=== PATIENT | female | born 1965 | race Two or more races ===

== ENCOUNTER 2025-04-22 11:10 | Inpatient (IN) | payer OTHER ==
[~2025-04-22] VITALS: Ht 162.6 cm; Wt 86.4 kg
[2025-04-22 11:20] VITALS: RESP 30
--- NOTE | 2025-04-22 11:20 | ED.PDOC ---
SOB-HPI HPI Comments 60 y.o female with PMHx of DM and HTN, presents to the ED via EMS for a chief complaint of SOB that started 2 days ago. Patient reports being seen at the ED recently for complaint, states she was discharged unknown diagnosis but sates SOB has progressively worsened since. Per triage notes, patient was diagnosed with PNA in which she is currently treating. Patient was placed on CPAP by EMS on scene due to respiratory distress. EMS also mentions patient is a tobacco smoker and last cigarette use was this morning. Patient also complains of right sided rib pain. 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 Family History Family History: Reviewed,noncontributory to illness, No family hx of Cancer, No family hx of DM, No family hx of Heart sagrario, No family hx of HTN, No family hx ofKidney sagrario, No family hx of Liver sargario, No family hx of Lung sagrario, No family hx of Stroke Social History Smoker: Non-Smoker Alcohol: Denies ETOH Use Drugs: Denies Drug Use Lives In: Home Constitutional: denies: chills, diaphoresis, fatigue, fever, malaise, sweats, weakness, others EENTM: denies: blurred vision, double vision, ear bleeding, ear discharge, ear drainage, ear pain, ear ringing, eye pain, eye redness, hearing loss, mouth pain, mouth swelling, nasal discharge, nose bleeding, nose congestion, nose pain, photophobia, tearing, throat pain, throat swelling, voice changes, others Respiratory: reports: SOB at rest, shortness of breath, SOB with excertion; denies: cough, hemoptysis, orthopnea, stridor, wheezing, others Cardiovascular: denies: chest pain, dizzy spells, diaphoresis, Dyspnea on exertion, edema, irregular heart beat, left arm pain, lightheadedness, palpitations, PND, syncope, others Gastrointestinal: denies: abdomen distended, abdominal pain, blood streaked bowels, constipated, diarrhea, dysphagia, difficulty swallowing, hematemesis, melena, nausea, poor appetite, poor fluid intake, rectal bleeding, rectal pain, vomiting, others Genitourinary: denies: abnormal vagina bleeding, burning, dyspareunia, dysuria, flank pain, frequency, hematuria, incontinence, pain, , vagina discharge, urgency, others Neurological: denies: dizziness, fainting, headache, left sided numbness, left sided weakness, numbness, paresthesia, pre-existing deficit, right sided numbness, right sided weakness, seizure, speech problems, tingling, tremors, weakness, others Musculoskeletal: denies: back pain, gout, joint pain, joint swelling, muscle pain, muscle stiffness, neck pain, others Integumetry: denies: bruises, change in color, change in hair/nails, dryness, laceration, lesions, lumps, rash, wounds, others Allergic/Immunocompromised: denies: Difficulty Healing, Frequent Infections, Hives, Itching, others Hematologic/Lymphatic: denies: anemia, blood clots, easy bleeding, easy bruising, swollen glands, others Endocrine: denies: excessive hunger, excessive sweating, excessive thirst, excessive urination, flushing, intolerance to cold, intolerance to heat, unexplained weight gain, unexplained weight loss, others Psychiatric: denies: anxiety, bipolar disorder, depression, hopeless, panic disorder, schizophrenia, sleepless, suicidal, others All Other Systems: Reviewed and Negative Physical Exam General Appearance: Mild Distress HEENT: Normal ENT Inspection Neck: Normal Inspection Respiratory: Accessory Muscle Use, Respiratory Distress Cardiovascular: No Edema, No Murmur, No Gallop, Tachycardia Breast Exam: Deferred Gastrointestinal: NOT DONE Genitalia: Deferred Pelvic: Deferred Rectal: Deferred Extremities: No calf tenderness, Normal inspection, Normal range of motion, No pedal edema Neurologic: Alert, Normal Affect, No Sensory Deficits Cerebellar Function: Unable to Test Reflexes: NOT DONE Skin: Dry, Normal Color Lymphatic: NOT DONE Was a procedure done? Was a procedure done?: No Differential Dx Differential Diagnosis: Bronchitis, COPD, Pneumonia, URI X-Ray, Labs, Meds, VS Vital Signs Date Time Temp Pulse Resp B/P (MAP) Pulse Ox O2 Delivery O2 Flow Rate FiO2 04/22/25 12:03 24 97 Bi-Pap+ 0 30 30 04/22/25 12:00 128 04/22/25 12:00 123 23 158/87 (110) 100 04/22/25 11:23 98.6 118 35 153/90 (111) 97 98.6 04/22/25 11:20 30 Bi-Pap+ 30 30 04/22/25 11:17 98.6 114 30 162/65 99 98.6 04/22/25 11:15 115 04/22/25 11:12 114 153/90 Facial BiPAP Mask 30 Lab Test 04/22/25 12:51 04/22/25 12:11 04/22/25 11:48 Range/Units Troponin I High Sensitivity Pending < 3 L </=34 ng/L Blood Gas Specimen Type Arterial Blood Gas Sample Site Right radial Blood Gas Patient Temperature 37.0 Arterial Blood Date Drawn [id number] Arterial Blood pH 7.397 7.350-7.450 Arterial Blood Partial Pressure CO2 31.5 L 32.0-45.0 mmHg Arterial Blood Partial Pressure O2 142.7 H 83.0-108.0 mmHg Arterial Blood HCO3 18.9 L 21.0-28.0 mmol/L Arterial Blood Oxygen Saturation 99.1 H 94.0-98.0 % Arterial Blood Base Excess -4.7 L -2.0-3.0 mmol/L Arterial Blood Oxyhemoglobin 95.6 94.0-98.0 % Arterial Blood Carboxyhemoglobin 2.8 H 0.5-1.5 % Arterial Blood Methemoglobin 0.7 0.0-1.5 % Nolan Test Yes Blood Gas Total Hemoglobin 15.10 12.0-16.0 g/dL Blood Gas Modality Mask - bipap FiO2 % 30.0 Blood Gas EPAP 5 Blood Gas IPAP 10 White Blood Count 15.8 H 4.4-10.8 10^3/uL Red Blood Count 4.97 4.0-5.20 10^6/uL Hemoglobin 14.4 12.2-16.2 g/dL Hematocrit 42.5 36.0-46.0 % Mean Corpuscular Volume 85.6 80.0-100.0 fL Mean Corpuscular Hemoglobin 28.9 28.0-32.0 pg Mean Corpuscular Hemoglobin Concent 33.8 32.0-36.0 g/dL Red Cell Distribution Width 15.1 H 11.8-14.3 % Platelet Count 416 140-450 10^3/uL Mean Platelet Volume 7.9 6.9-10.8 fL Neutrophils (%) (Auto) 85.4 H 37.0-80.0 % Lymphocytes (%) (Auto) 6.8 L 10.0-50.0 % Monocytes (%) (Auto) 7.0 0.0-12.0 % Eosinophils (%) (Auto) 0.4 0.0-7.0 % Basophils (%) (Auto) 0.4 0.0-2.0 % Neutrophils # (Auto) 13.5 H 1.6-8.6 10 ^3/uL Lymphocytes # (Auto) 1.1 0.4-5.4 10 ^3/uL Monocytes # (Auto) 1.1 0-1.3 10 ^3/uL Eosinophils # (Auto) 0.1 0-0.8 10 ^3/uL Basophils # (Auto) 0.1 0-0.2 10 ^3/uL Nucleated Red Blood Cells 0.1 % Prothrombin Time 10.6 9.3-11.8 sec Prothrombin Time INR 1.00 0.9-1.15 Activated Partial Thromboplast Time 27.4 24.5-34.5 SEC D-Dimer, Quantitative 0.48 0.0-0.49 mg/L FEU Sodium Level 139 136-145 mmol/L Potassium Level 4.0 3.5-5.1 mmol/L Chloride Level 106 98-107 mmol/L Carbon Dioxide Level 23 20-31 mmol/L Anion Gap 10 5-15 Blood Urea Nitrogen 16 9-23 mg/dL Creatinine 0.75 0.550-1.02 mg/dL Glomerular Filtration Rate Calc 91 >90 mL/min BUN/Creatinine Ratio 21.3 H 10.0-20.0 Serum Glucose 181 H 74-106 mg/dL Calcium Level 9.7 8.7-10.4 mg/dL Magnesium Level 2.0 1.6-2.6 mg/dL Total Bilirubin 1.0 0.2-1.0 mg/dL Aspartate Amino Transferase (AST) 13 13-40 U/L Alanine Aminotransferase (ALT) 17 7-40 U/L Alkaline Phosphatase 120 H 46-116 U/L B-Type Natriuretic Peptide 26.59 0-100 pg/mL Total Protein 7.9 5.7-8.2 g/dL Albumin 5.0 H 3.2-4.8 g/dL Current Medications Medications (Trade) Dose Ordered Sig/Sandi Route Start Time Stop Time Status Last Admin Magnesium Sulfate/ Dextrose 100 ml @ 100 mls/hr Q1H IV 04/22/25 12:00 04/22/25 13:59 04/22/25 12:56 Hydrocortisone Sodium Succinate (Solu-CORTEF INJECTION) 100 mg ONCE ONCE IV 04/22/25 12:00 04/22/25 12:01 DC 04/22/25 11:56 Albuterol (Ventolin Medneb) 5 mg ONCE ONCE NEB 04/22/25 12:00 04/22/25 12:01 DC 04/22/25 12:02 Time of 1ST Reevaluation: 11:28 Reevaluation 1ST: Unchanged Patient Education/Counseling: Diagnosis, Treatment, Prognosis Family Education/Counseling: No Family Present SEPSIS Sepsis Screen Physician Orders Troponin-I Hs (04/22/25 11:18) Chest Portable (04/22/25 11:18) Urinalysis (04/22/25 11:18) Troponin-I Hs (04/22/25 14:18) BIPAP (04/22/25 11:24) Abg W/ Co-Ox (04/22/25 12:20) Electrocardigram (04/22/25 11:47) Magnesium Sulfate 1gm/100ml (04/22/25 12:00) Vital Signs Date Time Temp Pulse Resp B/P (MAP) Pulse Ox O2 Delivery O2 Flow Rate FiO2 04/22/25 12:03 24 97 Bi-Pap+ 0 30 30 04/22/25 12:00 128 04/22/25 12:00 123 23 158/87 (110) 100 04/22/25 11:23 98.6 118 35 153/90 (111) 97 98.6 04/22/25 11:20 30 Bi-Pap+ 30 30 04/22/25 11:17 98.6 114 30 162/65 99 98.6 04/22/25 11:15 115 04/22/25 11:12 114 153/90 Facial BiPAP Mask 30 Laboratory Tests Test 04/22/25 11:48 White Blood Count 15.8 10^3/uL (4.4-10.8) H Medications Medications Dose Ordered Sig/Sandi Route Start Time Stop Time Status Last Admin Dose Admin Albuterol 5 mg ONCE ONCE NEB 04/22/25 12:00 04/22/25 12:01 DC 04/22/25 12:02 Hydrocortisone Sodium Succinate 100 mg ONCE ONCE IV 04/22/25 12:00 04/22/25 12:01 DC 04/22/25 11:56 Magnesium Sulfate/ Dextrose 100 ml @ 100 mls/hr Q1H IV 04/22/25 12:00 04/22/25 13:59 04/22/25 12:56 Departure 1 Departure Time of Disposition: 13:40 Impression: Primary Impression: Dyspnea and respiratory abnormalities Additional Impressions: Pneumonia Leukocytosis Disposition: ADMITTED INPATIENT Admit to: Tele Condition: Serious Discharged With: Self Critical Care Note Critical Care Time?: No Stability Stability form required: No Heart Score Heart Score: Heart Score Response (Comments) Value History N/A 0 EKG N/A 0 Age N/A 0 Risk Factors N/A 0 Troponin N/A 0 Total 0 I personally scribed for CORTEZ SHAH MD ([email or web address]) on 04/22/25 at 11:20. Electronically submitted by Jazzy Albarado ([facility]). I personally scribed for CORTEZ SHAH MD ([email or web address]) on 04/22/25 at 11:33. Electronically submitted by Jazzy Albarado ([facility]). CORTEZ SHAH MD Apr 22, 2025 11:20
--- NOTE | 2025-04-22 11:54 | DVH ---
CHEST RADIOGRAPH Indication: cp sob Technique: Single frontal view of the chest was obtained COMPARISON: None FINDINGS: Lines and Tubes: None Lungs: Moderate patchy bibasilar pulmonary infiltrate, [id number]-left. Small bilateral pleu ral effusions, [id number]-left. No pneumothorax. Cardiomediastinal contours: Unremarkable Bones: Unremarkable IMPRESSION: 1. Moderate patchy bibasilar pulmonary infiltrate and small bilateral pleural effusions, right-greate r-than-left.
[2025-04-22] MEDS: HYDROCORTISONE SOD SUCC 100 MG/2ML INJ VIAL IV ONE (11:56)
[2025-04-22] MEDS: ALBUTEROL SULF 2.5 MG/0.5ML(0.5%) NEB SOLN NEB ONE ×2 (12:02→18:46)
[2025-04-22 12:06] LABS: Hematocrit 42.5 % (36.0-46.0); Hemoglobin 14.4 g/dL (12.2-16.2); Mean Corpuscular Hemoglobin 28.9 pg (28.0-32.0); Mean Corpuscular Volume 85.6 fL (80.0-100.0); Nucleated Red Blood Cells % 0.1 %
[2025-04-22] MEDS: MAGNESIUM SULFATE 1GM/100ML 100 ML IV SCH (12:06)
[2025-04-22 12:17] LABS: Base Excess -4.7 mmol/L (-2.0-3.0)
[2025-04-22 12:27] LABS: Alanine Aminotransferase 17 U/L (7-40); Anion Gap 10 (5-15); BUN/Creatinine Ratio 21.3 (10.0-20.0); Blood Urea Nitrogen 16 mg/dL (9-23); Calcium 9.7 mg/dL (8.7-10.4); Carbon Dioxide 23 mmol/L (20-31); Chloride 106 mmol/L (98-107); Magnesium 2.0 mg/dL (1.6-2.6); Potassium 4.0 mmol/L (3.5-5.1); Sodium 139 mmol/L (136-145); Total Protein 7.9 g/dL (5.7-8.2)
[2025-04-22 12:28] LABS: Bilirubin, Total 1.0 mg/dL (0.2-1.0); INR 1.0 (0.9-1.15); Partial Thromboplastin Time 27.4 SEC (24.5-34.5); Prothrombin Time 10.6 sec (9.3-11.8)
[2025-04-22 12:30] LABS: Albumin 5.0 g/dL (3.2-4.8); Alkaline Phosphatase 120 U/L (46-116); Glucose 181 mg/dL (74-106)
[2025-04-22] MEDS: AZITHROMYCIN 500MG/ 250ML 250 ML IV ONE (15:08)
[2025-04-22 15:30] VITALS: BP 152/82; PULSE 119; RESP 22
[2025-04-22 18:35] VITALS: PULSE 118; RESP 28; O2SAT 95
[2025-04-22 18:52] VITALS: PULSE 125; RESP 28; O2SAT 95
[2025-04-22 19:35] VITALS: RESP 25; O2SAT 96
[2025-04-22 20:56] LABS: COVID19 ANTIGEN SOFIA FIA NEGATIVE (NEGATIVE)
[2025-04-22] MEDS: IBUPROFEN 400 MG TAB PO ONE (21:13)
[2025-04-22] MEDS ORDERED: MORPHINE SULFATE INJ 2 MG/ml SYRG IV PRN ×2 (23:45)
[2025-04-22] MEDS ORDERED: HYDROcodone-ACET 5/325MG TAB PO PRN (23:45)
[2025-04-22] MEDS ORDERED: NITROGLYCERIN 0.4 MG SL TAB SL PRN (23:45)
[2025-04-22] MEDS ORDERED: ONDANSETRON HCL 4 MG/2 ML VIAL IV PRN (23:45)
[2025-04-22] MEDS ORDERED: ACETAMINOPHEN 325 MG TAB PO PRN (23:45)
[2025-04-22] MEDS ORDERED: DOCUSATE SOD 100 MG CAP PO PRN (23:45)
[2025-04-22] MEDS: SODIUM CHLORIDE 0.9% 1,000 ML IV SCH (23:54)
[2025-04-23] VITALS (7 sets, daily range): PULSE 74–124; RESP 16–28; O2SAT 96–99
[2025-04-23] MEDS: NICOTINE 14 MG/24HR TOPICAL PATCH TD ONE (03:15)
[2025-04-23] MEDS: LIDOCAINE 5% TOPICAL PATCH TOP ONE (03:15)
[2025-04-23] MEDS: LACTATED RINGER'S 1,650 ML IV ONE (03:15)
[2025-04-23] MEDS: DEXTROSE (50%) 50ML SYRG IV ONE (03:30)
[2025-04-23] MEDS: ACCU-CHEK COMFORT CURVE STRIP VI ONE (04:15)
[2025-04-23] MEDS: InsuLIN REG 1unit/0.01ml Soln (100units/ml) SC ONE (04:15)
[2025-04-23] MEDS: CYCLOBENZAPRINE HCL 10 MG TAB PO SCH (06:00)
[2025-04-23] MEDS: IPRATROPIUM BROM 0.5 MG/2.5ML INH SOL NEB SCH (06:05)
[2025-04-23] MEDS: ALBUTEROL SULF 2.5 MG/0.5ML(0.5%) NEB SOLN NEB SCH (06:05)
[2025-04-23 07:01] LABS: Hematocrit 38.0 % (36.0-46.0); Hemoglobin 13.0 g/dL (12.2-16.2); Mean Corpuscular Hemoglobin 29.2 pg (28.0-32.0); Mean Corpuscular Volume 85.3 fL (80.0-100.0); Nucleated Red Blood Cells % 0.1 %
--- NOTE | 2025-04-23 07:04 | DVHHPRES ---
History of Present Illness Resident Creating Document: NATHAN MICHEL RESIDENT History of Present Illness Melissa Knowles is a 60-year-old female with past medical history of is mellitus, exercise-induced asthma, hyperlipidemia who came to the ED with chief complaints of shortness of breath and right-sided chest pain which was 7/10 in intensity, constant, radiating to the midback which increased when inhaling, is associated with mild cough. Patient denies hemoptysis, recent travel or sick contacts. Patient does not have any recent hospitalizations or antibiotic use. Patient on arrival presented with tachycardia, tachypnea, hypoxic and is on 4 L oxygen, does not use home oxygen. States she feels dizzy, has a mild headache but denies any nausea, vomiting, diarrhea, constipation, palpitations, heartburn. Chest x-ray showed Moderate patchy bibasilar pulmonary infiltrate and small bilateral pleural effusions, [id number]-[id number]-left. She also states that using the BiPAP has increased her pain. Patient is admitted for possible pneumonia and is given IV ceftriaxone, azithromycin. Past medical history: Diabetes mellitus, hyperlipidemia, exercise induced asthma Past Surgical history: Cholecystectomy in June 2024, tubal ligation, partial hysterectomy Social history: Smokes 1 pack per day since 25 years, denies any alcohol use or drug use Family history: Reviewed, noncontributory Lives with: Family Allergic to: Grass, animal dander PCP: Jill Allison Review of Systems Constitutional: No: Fever, Chills, Sweats, Weakness, Malaise, Other Eyes: No: Pain, Vision change, Conjunctivae inflammation, Eyelid inflammation, Other, Redness ENT: No: Ear pain, Ear discharge, Nose pain, Nose discharge, Nose congestion, Mouth pain, Mouth swelling, Throat pain, Throat swelling, Other Respiratory: Cough, Shortness of breath Cardiovascular: Chest Pain Gastrointestinal: No: Nausea, Vomiting, Abdominal Pain, Diarrhea, Constipation, Melena, Hematochezia, Other Genitourinary: No Dysuria, No Frequency, No Incontinence, No Hematuria, No Retention, No Other Musculoskeletal: No: other, neck pain, shoulder pain, arm pain, back pain, hand pain, leg pain, foot pain Skin: No: Rash, Lesions, Jaundice, Bruising, Other Neurological: No: Weakness, Numbness, Incoordination, Change in speech, Confusion, Seizures, Other Allergies: Coded Allergies: NO KNOWN ALLERGIES (Unverified , 04/22/25) Medications Current Medications Medications Dose Ordered Sig/Sandi Route Start Time Stop Time Status Last Admin Dose Admin Sodium Chloride 1,000 ml @ 60 mls/hr [id number] IV 04/22/25 23:45 04/22/25 23:54 60 MLS/HR Acetaminophen/ Hydrocodone Bitart 1 tab Q4HP PRN PO 04/22/25 23:45 Ondansetron HCl 4 mg Q4HP PRN IV 04/22/25 23:45 Docusate Sodium 100 mg BIDPRN PRN PO 04/22/25 23:45 Enoxaparin Sodium 40 mg DAILY SC 04/23/25 10:00 Acetaminophen 650 mg Q6HP PRN PO 04/22/25 23:45 Morphine Sulfate 2 mg Q4HPRN PRN IV 04/22/25 23:45 Nitroglycerin 0.4 mg Q5MINP PRN SL 04/22/25 23:45 Morphine Sulfate 2 mg Q30M PRN IV 04/22/25 23:45 Ceftriaxone Sodium 50 ml @ 100 mls/hr DAILY@1500 IV 04/23/25 15:00 Azithromycin 250 ml @ 125 mls/hr DAILY@1500 IV 04/23/25 15:00 UNV Cyclobenzaprine HCl 5 mg TID PO 04/23/25 06:00 Lidocaine 1 patch DAILY@0300 TOP 04/24/25 03:00 Ipratropium [place] 0.5 mg Q6HWA [facility] [place] 04/23/25 06:00 04/23/25 06:05 0.5 MG Nicotine 1 patch DAILY@0300 TD 04/24/25 03:00 Albuterol 2.5 mg Q6HWA [facility] [place] 04/23/25 06:00 04/23/25 06:05 2.5 MG Exam Vital Signs Vital Signs Date Time Temp Pulse Resp B/P (MAP) Pulse Ox O2 Delivery O2 Flow Rate FiO2 04/23/25 06:06 79 28 99 04/23/25 06:00 Nasal Cannula* 4 36 04/23/25 01:00 128/63 (84) 04/22/25 22:14 98.6 98.6 Exam General: Patient alert and oriented in person, place and time. Patient following commands. In moderate distress HEENT: Normocephalic, atraumatic, moist mucous membranes Respiratory/pulmonary: Right-sided crackles heard on auscultation Cardiovascular: Normal heart sounds S1 and S2 with no associated murmurs Abdomen: Abdomen nondistended, there is no pain to palpation in any of the abdominal quadrants, no palpable masses. Extremities: There is no peripheral edema present at the lower extremities. Peripheral Pulses: 3+ Radial (R). 3+ Radial (L). 3+ Dorsalis pedis (R). 3+ Dorsalis pedis(L) Skin: No rashes or pruritus, there is no sacral edema present at this time. Neurological: Intact cranial nerves with no focal neurologic deficits Labs/Xrays Labs Test 04/22/25 12:51 04/22/25 12:11 04/22/25 11:48 04/22/25 00:00 Range/Units Troponin I High Sensitivity 3 L </=34 ng/L Blood Gas Specimen Type Arterial Blood Gas Sample Site Right radial Blood Gas Patient Temperature 37.0 Arterial Blood Date Drawn [id number] Arterial Blood pH 7.397 7.350-7.450 Arterial Blood Partial Pressure CO2 31.5 L 32.0-45.0 mmHg Arterial Blood Partial Pressure O2 142.7 H 83.0-108.0 mmHg Arterial Blood HCO3 18.9 L 21.0-28.0 mmol/L Arterial Blood Oxygen Saturation 99.1 H 94.0-98.0 % Arterial Blood Base Excess -4.7 L -2.0-3.0 mmol/L Arterial Blood Oxyhemoglobin 95.6 94.0-98.0 % Arterial Blood Carboxyhemoglobin 2.8 H 0.5-1.5 % Arterial Blood Methemoglobin 0.7 0.0-1.5 % Nolan Test Yes Blood Gas Total Hemoglobin 15.10 12.0-16.0 g/dL Blood Gas Modality Mask - bipap FiO2 % 30.0 Blood Gas EPAP 5 Blood Gas IPAP 10 White Blood Count 15.8 H 4.4-10.8 10^3/uL Red Blood Count 4.97 4.0-5.20 10^6/uL Hemoglobin 14.4 12.2-16.2 g/dL Hematocrit 42.5 36.0-46.0 % Mean Corpuscular Volume 85.6 80.0-100.0 fL Mean Corpuscular Hemoglobin 28.9 28.0-32.0 pg Mean Corpuscular Hemoglobin Concent 33.8 32.0-36.0 g/dL Red Cell Distribution Width 15.1 H 11.8-14.3 % Platelet Count 416 140-450 10^3/uL Mean Platelet Volume 7.9 6.9-10.8 fL Neutrophils (%) (Auto) 85.4 H 37.0-80.0 % Lymphocytes (%) (Auto) 6.8 L 10.0-50.0 % Monocytes (%) (Auto) 7.0 0.0-12.0 % Eosinophils (%) (Auto) 0.4 0.0-7.0 % Basophils (%) (Auto) 0.4 0.0-2.0 % Neutrophils # (Auto) 13.5 H 1.6-8.6 10 ^3/uL Lymphocytes # (Auto) 1.1 0.4-5.4 10 ^3/uL Monocytes # (Auto) 1.1 0-1.3 10 ^3/uL Eosinophils # (Auto) 0.1 0-0.8 10 ^3/uL Basophils # (Auto) 0.1 0-0.2 10 ^3/uL Nucleated Red Blood Cells 0.1 % Prothrombin Time 10.6 9.3-11.8 sec Prothrombin Time INR 1.00 0.9-1.15 Activated Partial Thromboplast Time 27.4 24.5-34.5 SEC D-Dimer, Quantitative 0.48 0.0-0.49 mg/L FEU Sodium Level 139 136-145 mmol/L Potassium Level 4.0 3.5-5.1 mmol/L Chloride Level 106 98-107 mmol/L Carbon Dioxide Level 23 20-31 mmol/L Anion Gap 10 5-15 Blood Urea Nitrogen 16 9-23 mg/dL Creatinine 0.75 0.550-1.02 mg/dL Glomerular Filtration Rate Calc 91 >90 mL/min BUN/Creatinine Ratio 21.3 H 10.0-20.0 Serum Glucose 181 H 74-106 mg/dL Calcium Level 9.7 8.7-10.4 mg/dL Magnesium Level 2.0 1.6-2.6 mg/dL Total Bilirubin 1.0 0.2-1.0 mg/dL Aspartate Amino Transferase (AST) 13 13-40 U/L Alanine Aminotransferase (ALT) 17 7-40 U/L Alkaline Phosphatase 120 H 46-116 U/L B-Type Natriuretic Peptide 26.59 0-100 pg/mL Total Protein 7.9 5.7-8.2 g/dL Albumin 5.0 H 3.2-4.8 g/dL Influenza Type A Antigen Negative Negative Influenza Type B Antigen Negative Negative SARS-CoV-2 Antigen (Rapid) Negative NEGATIVE SEPSIS Sepsis Screen Date sepsis recognized/suspect: Apr 22, 2025 Time Sepsis recognized/suspect: 1116 Recent Procedure: No On Antibiotic Therapy: No Respiratory Rate >20: No Heart Rate >90: Yes Temp<36 C (96.8 F) or >38.3 C: No SBP <90 or MAP <65 mmHG: No New Acute Mental Status Change: No Is the patient on CPAP, BIPAP,: No Physician Orders Admit (04/22/25 23:36) Allergies (04/22/25 23:36) Code Status (04/22/25 23:36) Sodium Chloride 0.9% (04/22/25 23:45) Oxygen Per Hour (04/22/25 23:36) Hydrocodone-Acet 5/325mg Tab ([place] 5/32 (04/22/25 23:45) Ondansetron Hcl (Zofran) (04/22/25 23:45) Docusate Sodium Capsule (Colace Capsule) (04/22/25 23:45) Enoxaparin Sodium (Lovenox) (04/23/25 10:00) Complete Blood Count (04/23/25 04:00) Comprehensive Metabolic Panel (04/23/25 04:00) Echo 2d Mode Cardiac Dop (04/22/25 23:36) Condition: Serious (04/22/25 23:36) Acetaminophen Tablet (Tylenol Tablet) (04/22/25 23:45) Morphine Sulfate Injection (04/22/25 23:45) Nitroglycerin Sublingual (Ntrostat Subli (04/22/25 23:45) Morphine Sulfate Injection (04/22/25 23:45) Oxygen By Nasal Cannula (04/22/25 23:36) Stat Ekg For Chest Pain (04/22/25 23:36) Notify Md Of Changes From Base (04/22/25 23:36) Scientific Linguist For 24 Hours (04/22/25 23:36) Emergency Dysrhythmia Protocol (04/22/25 23:36) Rhythm Strips Once Every Shift (04/22/25 23:36) Lactic Acid W/ Reflex Order (04/23/25 00:12) Hemoglobin A1c (04/23/25 00:12) Ceftriaxone 1gm/50ml D5w (Rocephin) (04/23/25 15:00) Azithromycin 500mg/ 250ml (Zithromax 50 (04/23/25 15:00) Respiratory Culture W/ Gs (04/23/25 00:15) Mrsa Screen (04/23/25 00:15) Blood Culture (04/23/25 00:15) Thyroid Stimulating Hormone (04/23/25 03:02) Electrocardigram (04/23/25 03:13) Strict Aspiration Precautions (04/23/25 03:14) Cyclobenzaprine Tablet (Flexeril Tablet) (04/23/25 06:00) Ipratropium Medneb (Atrovent Medneb) (04/23/25 06:00) Albuterol Medneb (Ventolin Medneb) (04/23/25 06:00) Cardiac Diet-2gna,Lofat,Lochol (04/23/25 Breakfast) Drug Screen (04/23/25 03:21) Lidocaine 5% Topical Patch (Lidoderm 5% (04/24/25 03:00) Nicotine 14mg/24hr (Nicoderm 14mg/24hr) (04/24/25 03:00) Vital Signs Date Time Temp Pulse Resp B/P (MAP) Pulse Ox O2 Delivery O2 Flow Rate FiO2 04/23/25 06:06 79 28 99 04/23/25 06:00 97 Nasal Cannula* 4 36 04/23/25 06:00 97 Nasal Cannula 4.0 04/23/25 06:00 82 18 97 04/23/25 04:00 90 04/23/25 01:00 97 21 128/63 (84) 97 04/23/25 00:00 82 25 119/56 (77) 99 04/22/25 23:00 115 27 128/73 (91) 96 04/22/25 22:14 98.6 120 25 136/76 (96) 96 98.6 Medications Medications Dose Ordered Sig/Sandi Route Start Time Stop Time Status Last Admin Dose Admin Albuterol 2.5 mg Q6HWA [facility] 04/23/25 06:00 04/23/25 06:05 2.5 MG Albuterol 5 mg ONCE ONCE NEB 04/22/25 18:45 04/22/25 18:46 DC 04/22/25 18:46 5 MG Ibuprofen 400 mg ONCE ONCE PO 04/22/25 21:00 04/22/25 21:01 DC 04/22/25 21:13 400 MG Ipratropium [place] 0.5 mg Q6HWA [facility] 04/23/25 06:00 04/23/25 06:05 0.5 MG Sodium Chloride 1,000 ml @ 60 mls/hr [id number] IV 04/22/25 23:45 04/22/25 23:54 60 MLS/HR Assessment/Plan Assessment/Plan # sepsis due to acute pneumonia # acute hypoxic respiratory failure # possible aspiration pneumonia # possible Gram-positive/ Gram-negative community-acquired pneumonia # ruled out COVID, influenza # exercise induced asthma/COPD -chest x-ray shows Moderate patchy bibasilar pulmonary infiltrate and small bilateral pleural effusions, [id number]-flqn-left. - Iv fluids - started on IV ceftriaxone, azithromycin - Ipratropium bromide 0.5 mg - Albuterol 2.5 mg - BIPAP for sleep -Cyclobenzaprine 5 mg - Lidocaine patch - Morphine 2 mg - covid and Influ negative - continue Aspiration Precautions # Active nicotine abuse - patient counseled on smoking cessation for 17 minutes - nicotine patch # hyperlipidemia - continue home meds # uncontrolled diabetes mellitus with hyperglycemia -Hba1c 8.1 - # Grade 1 obesity- BMI 32.7 - patient counseled on lifestyle modifications, exercise, diet for 13 minutes PPI prophylaxis: Not Indicated DVT prophylaxis: Lovenox 40 mg Goals of care addressed with the patient for more than 31 minutes: Full code status Case discussed with Dr. Smith, patient and nurse Plan discussed with: Patient My Orders Orders - NATHAN MICHEL RESIDENT Procedure Category Date Status Time Admit ADMIT 04/22/25 Transmitted 23:36 Allergies COY 04/22/25 In Process 23:36 Code Status CODE 04/22/25 Transmitted 23:36 Sodium Chloride 0.9% PHA 04/22/25 In Process 23:45 Oxygen Per Hour RT 04/22/25 Transmitted 23:36 Hydrocodone-Acet PHA 04/22/25 In Process 5/325mg Tab ([place] 23:45 Ondansetron Hcl PHA 04/22/25 In Process (Zofran) 23:45 Docusate Sodium PHA 04/22/25 In Process Capsule (Colace 23:45 Enoxaparin Sodium PHA 04/23/25 In Process (Lovenox) 10:00 Complete Blood Count LAB 04/23/25 Logged 04:00 Comprehensive LAB 04/23/25 Logged Metabolic Panel 04:00 Echo 2d Mode Cardiac US 04/22/25 Logged DOP 23:36 Condition: Serious COY 04/22/25 In Process 23:36 Acetaminophen Tablet PHA 04/22/25 In Process (Tylenol Tablet) 23:45 Morphine Sulfate PHA 04/22/25 In Process Injection 23:45 Nitroglycerin PHA 04/22/25 In Process Sublingual (Ntrostat 23:45 Morphine Sulfate PHA 04/22/25 In Process Injection 23:45 Oxygen By Nasal RT 04/22/25 Transmitted Cannula 23:36 Stat Ekg For Chest COY 04/22/25 In Process Pain 23:36 Notify Of Changes COY 04/22/25 In Process From Base 23:36 Scientific Linguist For COY 04/22/25 In Process 24 Hours 23:36 Emergency Dysrhythmia COY 04/22/25 In Process Protocol 23:36 Rhythm Strips Once COY 04/22/25 In Process Every Shift 23:36 Lactic Acid W/ Reflex LAB 04/23/25 Logged Order 00:12 Hemoglobin A1c LAB 04/23/25 Logged 00:12 Ceftriaxone 1gm/50ml PHA 04/23/25 In Process D5w (Rocephin) 15:00 Azithromycin 500mg/ PHA 04/23/25 Pending 250ml (Zithromax 50 15:00 Respiratory Culture ANGELICA 04/23/25 Uncollected W/ Gs 00:15 Mrsa Screen ANGELICA 04/23/25 Uncollected 00:15 Blood Culture ANGELICA 04/23/25 Uncollected 00:15 Date of Service: Apr 23, 2025 Billing Provider: DIXON SMITH MD Common Visit Codes: [id number] INP/OBS CARE (HIGH) Secondary Visit Codes: [id number] CARE PLAN 30 MINUTES NATHAN MICHEL RESIDENT Apr 23, 2025 07:04
[2025-04-23 07:11] LABS: Alanine Aminotransferase 16 U/L (7-40); Albumin 4.4 g/dL (3.2-4.8); Alkaline Phosphatase 111 U/L (46-116); Anion Gap 12 (5-15); BUN/Creatinine Ratio 25.5 (10.0-20.0); Blood Urea Nitrogen 14 mg/dL (9-23); Calcium 9.2 mg/dL (8.7-10.4); Carbon Dioxide 21 mmol/L (20-31); Chloride 105 mmol/L (98-107); Potassium 3.7 mmol/L (3.5-5.1); Sodium 138 mmol/L (136-145); Total Protein 7.0 g/dL (5.7-8.2)
[2025-04-23 07:12] LABS: Bilirubin, Total 1.2 mg/dL (0.2-1.0)
[2025-04-23 07:14] LABS: Glucose 115 mg/dL (74-106)
--- NOTE | 2025-04-23 09:17 | ECG ---
[facility] Test Date: 2025-04-22 Test Time: 11:15:53 Pat Name: KERA العلي Department: [facility] ED Room: [address] [place] [address] Gender: F [employer]ger Helper: YI : 1965 Requested By: CORTEZ SHAH Order Number: [id number] Reading MD: Terrance Pierson Measurements Intervals [place] Rate: 115 P: 67 MT: 146 QRS: 35 QRSD: 144 T: 257 QT: 326 QTc: 451 Interpretive Statements Sinus tachycardia Left bundle branch block Baseline wander in lead(s) V1 Electronically Signed On 04-25-2025 18:39:11 PDT by Terrance Pierson Please click the below link to view image of tracing.
[2025-04-23] MEDS: ENOXAPARIN SOD 40 MG/0.4 ML SYRINGE SC SCH (10:00)
[2025-04-23 12:15] LABS: Amphetamine Screen, Urine Neg (NEGATIVE); Barbiturate Scree,Urine Neg (NEGATIVE); Benzodiazephine Screen, Urine Neg (NEGATIVE); Cannabinoid Screen, Urine Neg (NEGATIVE); Cocaine Screen, Urine Neg (NEGATIVE); Opiate Scree,Urine Neg (NEGATIVE); Phencyclidine Screen, Urine Neg (NEGATIVE)
--- NOTE | 2025-04-23 12:15 | DVHSR ---
APPROVED REPORT EXAM: Two-dimensional and M-mode echocardiogram with Doppler and color Doppler. Blood Pressure: 143/60 mmHg INDICATION rule out structural heart diseaase RISK FACTORS Obesity: Height: 5'4, Weight: 190 DIMENSIONS LVDd4.8 (3.8-5.7cm)LA (2D)4.2 (1.9-4.0cm)Aortic Root3.1 (2.0-3.7cm) LVDs3.5 (2.5-4.0cm)LA (MM) (1.9-4.0cm)Aortic Cusp Exc1.6 (1.5-2.0cm) EF (%) 55.0 (55-70%)Rt. Atrium4.8 (1.9-4.0cm)Asc. Aorta cm IVSd1.2 (0.7-1.1cm)RV (D)4.8 (1.8-2.4cm) PWd1.2 (0.7-1.1cm) Mitral Valve MitralMitral Stenosis E wave0.79m/sMV Mean GR.mmHg A wave0.79m/sMV Peak GR.84mmHg E/A ratio1.02D MVAcm2 DECEL [id number] 1/2 [place] Aortic Valve Aortic ValveAortic Stenosis V11.33m/Riki Mean GR.9mmHg V21.99m/Riki Peak GR.16mmHg LVOT Diameter2.1 (1.8-2.4cm)Doppler AVA2.31cm2 Pulmonic Valve V21.58m/s Tricuspid Valve TR Velocity2.65m/s [id number] Other Information Technically limited study due to pt sob and sitting up unable to lay back Conclusion lvef 60% mild LVH normal RV Function left atrium enlarged mild aortic stenosis
[2025-04-23] MEDS ORDERED: DEXTROSE (50%) 50ML SYRG IV PRN (13:00)
--- NOTE | 2025-04-23 13:03 | DVHDS2 ---
Discharge Summary Date of Admission Apr 22, 2025 at 23:36 Date of Discharge: Apr 23, 2025 Labs/Diagnostic Data: Laboratory Results Test 04/23/25 11:31 04/23/25 06:02 04/22/25 12:51 04/22/25 12:11 Urine Opiates Screen Neg (NEGATIVE) Urine Fentanyl Screen Neg (NEGATIVE) Urine Barbiturates Screen Neg (NEGATIVE) Urine Phencyclidine Screen Neg (NEGATIVE) Urine Amphetamines Screen Neg (NEGATIVE) Urine Benzodiazepines Screen Neg (NEGATIVE) Urine Cocaine Screen Neg (NEGATIVE) Urine Cannabinoids Screen Neg (NEGATIVE) White Blood Count 15.4 10^3/uL (4.4-10.8) Red Blood Count 4.46 10^6/uL (4.0-5.20) Hemoglobin 13.0 g/dL (12.2-16.2) Hematocrit 38.0 % (36.0-46.0) Mean Corpuscular Volume 85.3 fL (80.0-100.0) Mean Corpuscular Hemoglobin 29.2 pg (28.0-32.0) Mean Corpuscular Hemoglobin Concent 34.2 g/dL (32.0-36.0) Red Cell Distribution Width 14.6 % (11.8-14.3) Platelet Count 377 10^3/uL (140-450) Mean Platelet Volume 8.0 fL (6.9-10.8) Neutrophils (%) (Auto) 85.6 % (37.0-80.0) Lymphocytes (%) (Auto) 6.1 % (10.0-50.0) Monocytes (%) (Auto) 8.1 % (0.0-12.0) Eosinophils (%) (Auto) 0.1 % (0.0-7.0) Basophils (%) (Auto) 0.1 % (0.0-2.0) Neutrophils # (Auto) 13.2 10 ^3/uL (1.6-8.6) Lymphocytes # (Auto) 0.9 10 ^3/uL (0.4-5.4) Monocytes # (Auto) 1.2 10 ^3/uL (0-1.3) Eosinophils # (Auto) 0 10 ^3/uL (0-0.8) Basophils # (Auto) 0 10 ^3/uL (0-0.2) Nucleated Red Blood Cells 0.1 % Sodium Level 138 mmol/L (136-145) Potassium Level 3.7 mmol/L (3.5-5.1) Chloride Level 105 mmol/L (98-107) Carbon Dioxide Level 21 mmol/L (20-31) Anion Gap 12 (5-15) Blood Urea Nitrogen 14 mg/dL (9-23) Creatinine 0.55 mg/dL (0.550-1.02) Glomerular Filtration Rate Calc 105 mL/min (>90) BUN/Creatinine Ratio 25.5 (10.0-20.0) Serum Glucose 115 mg/dL (74-106) Hemoglobin A1c 8.1 % A1C (<5.7) Lactic Acid Level 1.0 mmol/L (0.4-2.0) Calcium Level 9.2 mg/dL (8.7-10.4) Total Bilirubin 1.2 mg/dL (0.2-1.0) Aspartate Amino Transferase (AST) 11 U/L (13-40) Alanine Aminotransferase (ALT) 16 U/L (7-40) Alkaline Phosphatase 111 U/L (46-116) Total Protein 7.0 g/dL (5.7-8.2) Albumin 4.4 g/dL (3.2-4.8) Thyroid Stimulating Hormone (TSH) 0.51 uIU/mL (0.55-4.78) Troponin I High Sensitivity 3 ng/L (</=34) Blood Gas Specimen Type Arterial Blood Gas Sample Site Right radial Blood Gas Patient Temperature 37.0 Arterial Blood Date Drawn [id number] Arterial Blood pH 7.397 (7.350-7.450) Arterial Blood Partial Pressure CO2 31.5 mmHg (32.0-45.0) Arterial Blood Partial Pressure O2 142.7 mmHg (83.0-108.0) Arterial Blood HCO3 18.9 mmol/L (21.0-28.0) Arterial Blood Oxygen Saturation 99.1 % (94.0-98.0) Arterial Blood Base Excess -4.7 mmol/L (-2.0-3.0) Arterial Blood Oxyhemoglobin 95.6 % (94.0-98.0) Arterial Blood Carboxyhemoglobin 2.8 % (0.5-1.5) Arterial Blood Methemoglobin 0.7 % (0.0-1.5) Nolan Test Yes Blood Gas Total Hemoglobin 15.10 g/dL (12.0-16.0) Blood Gas Modality Mask - bipap FiO2 % 30.0 Blood Gas EPAP 5 Blood Gas IPAP 10 Test 04/22/25 11:48 04/22/25 00:00 Prothrombin Time 10.6 sec (9.3-11.8) Prothrombin Time INR 1.00 (0.9-1.15) Activated Partial Thromboplast Time 27.4 SEC (24.5-34.5) D-Dimer, Quantitative 0.48 mg/L FEU (0.0-0.49) Magnesium Level 2.0 mg/dL (1.6-2.6) B-Type Natriuretic Peptide 26.59 pg/mL (0-100) Influenza Type A Antigen Negative (Negative) Influenza Type B Antigen Negative (Negative) SARS-CoV-2 Antigen (Rapid) Negative (NEGATIVE) Other Laboratory Tests 04/23/25 06:02 Brief Hx & Hospital Course: SEE DICTATED NOTE Condition at Discharge: Fair Final Diagnosis/Problems List PNEUMONIA Discharge Disposition: Acute Care Facility Discharge Instruct/Medications Diet: Consistent carbohydrate Activity: No Restrictions, As Tolerated Follow Up/Referral: [facility]SC[facility] MARSH Medications: PER OCT Discharge Statement: "Patient was advised to return to the ER or call 911 if any headaches, dizziness, shortness of breath, chest pain, abdominal pain, bleeding, fevers, or worsening of medical condition. Patient was counseled about treatment plan, medications, possible side effects, patientverbalized understanding. All questions were answered to the best of my ability. This discharge took greater then 30 minutes in planning, reviewing documentation, counseling the patient, and discussing with other team members." ASSESSMENT ASSESSMENT Assessment PNEUMONIA Date of Service: Apr 23, 2025 Billing Provider: CONNIE RUBALCAVA MD Common Visit Codes: 12727-DQC/OBS DISCH DAY >30min CONNIE RUBALCAVA MD Apr 23, 2025 13:03
--- NOTE | 2025-04-23 13:05 | CODING ---
Date of Service: Apr 23, 2025 Billing Provider: CONNIE RUBALCAVA MD Common Visit Codes: 33458-XHK/OBS DISCH DAY >30min Secondary Visit Codes: 52738-TWOZM CHNG SMOKING >10MIN CONNIE RUBALCAVA MD Apr 23, 2025 13:05
--- NOTE | 2025-04-23 13:13 | DVHDS ---
DATE OF DISCHARGE: 04/23/2025 TRANSFER SUMMARY HISTORY OF PRESENT ILLNESS: The patient is a 60-year-old lady who came with a history of increasing shortness of breath and right-sided chest pain and cough. The patient has history of COPD, diabetes mellitus, and hyperlipidemia. HOSPITAL COURSE: The patient had a chest x-ray that showed patchy infiltrate more so on the right side. The patient had elevated white count of 15,000. The patient was initially on BiPAP, but is now on oxygen. The patient now wishes to be transferred to [facility] for further management. Her COVID-19 and influenza tests were negative. The patient will be transferred to [facility] once arrangements have been made. FINAL DIAGNOSES: Therefore: * Acute respiratory failure. * Right-sided pneumonia with sepsis. * Tobacco abuse for which she was advised to quit, has refused nicotine patch. Time spent was 11 minutes. * COPD. * Hyperlipidemia. * Sepsis with right-sided pneumonia, Gram-positive and Gram-negative. Time spent in discharge planning and review of plan with the patient, family, and nursing was 39 minutes. MD JUAN DAVID Dixon/IRIS TID: [id number] RECEIPT: [id number]
[2025-04-23] MEDS ORDERED: AZITHROMYCIN 500MG/ 250ML 250 ML IV SCH (15:00)
[2025-04-23] MEDS ORDERED: InsuLIN REG 1unit/0.01ml Soln (100units/ml) SC SCH (17:00)
[2025-04-23] MEDS ORDERED: ACCU-CHEK COMFORT CURVE STRIP VI SCH (17:00)
[2025-04-24 01:53] VITALS: BP 123/80; PULSE 102; RESP 16; TEMP 98.5; O2SAT 95
[2025-04-24] MEDS ORDERED: NICOTINE 14 MG/24HR TOPICAL PATCH TD SCH (03:00)
[2025-04-24] MEDS ORDERED: LIDOCAINE 5% TOPICAL PATCH TOP SCH (03:00)
== END 2025-04-24 01:52 | disposition short-term general hospital (02) | DRG 871 ==
LOC: ER 11:10 → EDBD 11:10 → OVERFLOW 23:36
PROVIDERS: ADMIT Internal Medicine; ATTEND Internal Medicine
PROC: 5A09357 Assistance with Respiratory Ventilation, Less than 24 Consecutive Hours, Continuous Positive Airway Pressure (ICD-10-PCS; principal; 2025-04-22)
DX: A41.59 Other Gram-negative sepsis (principal); J15.69 Pneumonia due to other Gram-negative bacteria; J96.01 Acute respiratory failure with hypoxia; J15.9 Unspecified bacterial pneumonia; J44.0 Chronic obstructive pulmonary disease with (acute) lower respiratory infection; E78.5 Hyperlipidemia, unspecified; E11.65 Type 2 diabetes mellitus with hyperglycemia; E66.811 Obesity, class 1; I10 Essential (primary) hypertension; Z68.32 Body mass index [BMI] 32.0-32.9, adult; Z71.6 Tobacco abuse counseling; Z72.0 Tobacco use
CPT/HCPCS: 36415; 36600; 71045; 80053; 80307; 82805; 83036; 83605; 83735; 83880; 84443; 84484; 85025; 85379; 85610; 85730; 87040; 87426; 87804; 93005; 93306; 94640; 94660; 96374; G0378